=== PATIENT | female | born 1995 | race Caucasian/White ===

== ENCOUNTER 2017-04-19 20:54 | Emergency (ER) | payer MEDICAID ==
--- NOTE | 2017-04-19 21:32 | ED Physician Chart ---
Chief Complaint/HPI - Patient Information Date Seen:: 04/19/17 Time Seen:: 21:27 Chief Complaint:: abd pain History of Present Illness:: pt brought in by mom/dad. she has hx of chrons dz. tonight parents were out bowling and pt c/o sev abd pain. she was seen here 2 wks ago and had similar pain. she was given a rx for some kind of pills from ed that seemed to be helping but fam ran out few days ago. she has seen pmd since last ed visit but was referred to [facility] Dr and hasnt been there yet. pt is on azathioprine 50mg qam for chron's dz no fever. no shashi change in BMS. pt gets reflux most every nt. diarhea is freq event too. is eating today. no known gastritis or gerd hx. note by Dr Sidney garcia 03/31/17 reviewed and gives some details but doesnt say what was rxd. Allergies:: Allergies Allergy/AdvReac Type Severity Reaction Status Date / Time No Known Allergies Allergy Verified 06/04/16 18:56 Vitals:: Vital Signs - 8 hr 04/19/17 21:00 Temp 98.0 F HR 109 RR 19 BP 102/63 O2 Sat % 100 Historian:: Patient, Family Member (m,d) Review of Systems - Review of Systems General/Constitutional: No fever, No chills, No weight loss, No weakness, No diaphoresis, No edema, No loss of appetite Skin: No skin lesions, No rash, No bruising Head: No headache, No light-headedness Eyes: No loss of vision, No pain, No diplopia ENT: No earache, No nasal drainage, No sore throat, No tinnitus Neck: No neck pain, No swelling, No thyromegaly, No stiffness, No mass noted Cardio Vascular: No chest pain, No palpitations, No PND, No orthopnea, No edema Pulmonary: No SOB, No cough, No sputum, No wheezing GI: No nausea, No vomiting, No diarrhea, Pain, No melena, No hematochezia, No constipation, No hematemesis G/U: No dysuria, No frequency, No hematuria Musculoskeletal: No bone or joint pain, No back pain, No muscle pain Endocrine: No polyuria, No polydipsia Psychiatric: No prior psych history, No depression, No anxiety, No suicidal ideation Hematopoietic: No bruising, No lymphadenopathy Allergic/Immuno: No urticaria, No angioedema Neurological: No syncope, No focal symptoms, No weakness, No paresthesia, No headache, No seizure, No dizziness, No confusion, No vertigo Past Medical History - Past Medical History Past Medical History: Other (chronz dz, downs synd) Social History: Lives With Parents Medication: Reviewed (dad doesnt know her meds or what was rxd 2 wks ago) Family Medical History - Family Member Maternal Grandmother History Unknown: Yes Ethnicity: Living Status: Hx Family Diabetes: Yes Mother History Unknown: Yes Ethnicity: Hx Family Cancer: No Hx Family Coronary Artery Disease: No Hx Family Congestive Heart Failure: No Hx Family Diabetes: No Physical Exam - Physical Examination General/Constitutional: Awake, Well-developed, well-nourished, Alert, No distress, Non-toxic appearing, Ambulatory Other Gen/Cons comments:: downs synd appearance. minimal verbal ..poor historian. she indicates all over abd as painful. no pallor. wn/wh. Head: Atraumatic Eyes: Lids, conjuctiva normal, PERRL, EOMI Skin: Nl inspection, No rash, No skin lesions, No ecchymosis, Well hydrated, No lymphadenopathy ENMT: External ears, nose nl, Nasal exam nl, Lips, teeth, gums nl Neck: Nontender, Full ROM w/o pain, No JVD, No nuchal rigidity, No bruit, No mass, No stridor Respiratory: Nl effort/Exclusion, Clear to Auscultation, No Wheeze/Rhonchi/Rales Cardio Vascular: RRR, No murmur, gallop, rubs, NL S1 S2 GI: No organomegaly, No hernia, Normal BS's, Nondistended, No mass/bruits, No McBurney tenderness Other GI comments:: diffuse vague mild tndr. : No CVA tenderness Extremities: No tenderness or effusion, Full ROM, normal strength in all extremities, No edema, Normal digits & nails Neuro/Psych: Alert/oriented, DTR's symmetric, Normal sensory exam, Normal motor strength, Judgement/insight normal, Mood normal, Normal gait, No focal deficits Misc: normal gait, Normal back, No paraspinal tenderness Labs/Radiology/EKG Results - Lab Results Results: Laboratory Tests 04/19/17 04/19/17 04/19/17 21:20 21:20 21:46 WBC 3.1 L D RBC 3.65 L Hgb 10.1 L D Hct 31.3 L D MCV 85.7 MCH 27.6 MCHC Differential 32.2 RDW 18.3 Plt Count 585 H D MPV 6.8 Neutrophils % 69.4 Lymphocytes % 19.6 L Monocytes % 7.3 Eosinophils % 2.9 Basophils % 0.8 Sodium Potassium Chloride Carbon Dioxide Anion Gap BUN Creatinine Est GFR ( Amer) Est GFR (Non-Af Amer) BUN/Creatinine Ratio Glucose Whole Bld Lactic Acid Calcium Total Bilirubin AST ALT Alkaline Phosphatase Total Protein Albumin Globulin Albumin/Globulin Ratio Urine Source CATH Urine Color YELLOW Urine Clarity CLEAR Urine pH 6.0 Ur Specific [place] 1.020 Urine Protein NEGATIVE Urine Glucose (UA) NEGATIVE Urine Ketones TRACE Urine Blood NEGATIVE Urine Nitrate NEGATIVE Urine Bilirubin NEGATIVE Urine Urobilinogen 0.2 Ur Leukocyte Esterase NEGATIVE Urine RBC 0-1 Urine WBC 0-2 Ur Epithelial Cells FEW Urine Bacteria OCCASIONAL Urine Mucus FEW Urine Test NEGATIVE 04/19/17 04/19/17 21:46 21:46 WBC RBC Hgb Hct MCV MCH MCHC Differential RDW Plt Count MPV Neutrophils % Lymphocytes % Monocytes % Eosinophils % Basophils % Sodium 134 L Potassium 3.5 Chloride 103 Carbon Dioxide 25.4 Anion Gap 9.1 BUN 21 Creatinine 0.8 Est GFR ( Amer) > 60.0 Est GFR (Non-Af Amer) > 60.0 BUN/Creatinine Ratio 26.3 Glucose 89 Whole Bld Lactic Acid 0.65 Calcium 8.4 L Total Bilirubin 0.2 L AST 9 L ALT 5 L Alkaline Phosphatase 40 Total Protein 6.9 Albumin 2.9 L Globulin 4.0 Albumin/Globulin Ratio 0.7 L Urine Source Urine Color Urine Clarity Urine pH Ur Specific [place] Urine Protein Urine Glucose (UA) Urine Ketones Urine Blood Urine Nitrate Urine Bilirubin Urine Urobilinogen Ur Leukocyte Esterase Urine RBC Urine WBC Ur Epithelial Cells Urine Bacteria Urine Mucus Urine Test - Radiology Results Results: ct abd/p- ltd exam due to low fat..dilated thick walled descending and sigmoid colon w adjacent haziness suggests poss inflamatory changes. ?diverticulitis, ? colitis (pt has hx of chronz dz..may be this) ED Septic Shock - . Is Septic Shock (SBP<90, OR Lactate>4 mmol\L) present?: No - <6hrs of presentation: Vital Signs: Vital Signs - 8 hr 04/19/17 21:00 Temp 98.0 F HR 109 RR 19 BP 102/63 O2 Sat % 100 Reassessment (Disposition) - Reassessment Reassessment:: no relief w gi cocktail. pt was given toradol shot in past and dc w neurontin but there wer no inflamatory changes on CT back then. Dad seems to prefer to want to take pt home but has no f/u w ge dr till monday. also, not great medical knowledge. Also he variable says she is/isnt feeling better and I am unconvinced which assessment is reliable(if any). Reassessment Condition:: Unchanged
[2017-04-19] MEDS: Sodium Chloride 0.9% 1,000 ML IV ONE (21:51)
[2017-04-19 21:55] LABS: % BASOPHILS 0.8 % (0.0-2.0); % EOSINOPHILS 2.9 % (0.0-5.0); % LYMPHOCYTES 19.6 % (20.0-50.0); % MONOCYTES 7.3 % (2.0-10.0); % NEUTROPHILS 69.4 % (40.0-80.0); MEAN CELL VOLUME 85.7 fl (81-100); MEAN CORPUSCULAR HEMOGLOBIN 27.6 pg (27.0-31.0); MEAN CORPUSCULAR HGB CONC 32.2 pg (28.0-36.0); MEAN PLATELET VOLUME 6.8 fl; NEUTROPHILE ABSOLUTE 2.2 Th/cmm (1.8-8.0); RED BLOOD COUNT 3.65 Mil/cmm (3.80-5.10); RED CELL DISTRIBUTION WIDTH 18.3 % (11.5-20.0)
[2017-04-19 22:00] LABS: HEMATOCRIT 31.3 % (35.0-45.0); HEMOGLOBIN 10.1 gm/dL (11.7-15.5); PLATELET COUNT 585 Th/cmm (150-400); WHITE BLOOD COUNT 3.1 Th/cmm (4.8-10.8)
[2017-04-19 22:10] LABS: ALB/GLOB RATIO 0.7 (1.0-1.8); ALKALINE PHOSPHATASE 40 U/L (34-104); ANION GAP 9.1 (7.0-16.0); BILIRUBIN,TOTAL 0.2 mg/dL (0.3-1.0); BUN - UREA NITROGEN 21 mg/dL (7-25); BUN/CREATININE RATIO 26.3; CALCIUM SERUM 8.4 mg/dL (8.6-10.3); CARBON DIOXIDE 25.4 mEq/L (21.0-31.0); CHLORIDE 103 mEq/L (98-107); CREATININE - SERUM 0.8 mg/dL (0.6-1.2); GLUCOSE 89 mg/dL (70-105); POTASSIUM SERUM 3.5 mEq/L (3.5-5.1); SGOT 9 U/L (13-39); SGPT/ALT 5 U/L (7-52); SODIUM SERUM 134 mEq/L (136-145)
[2017-04-19 22:10] LABS: URINE BILIRUBIN NEGATIVE (NEGATIVE); URINE BLOOD NEGATIVE (NEGATIVE); URINE COLOR YELLOW; URINE GLUCOSE (UA) NEGATIVE (NEGATIVE); URINE KETONE TRACE mg/dL (NEGATIVE); URINE PROTEIN NEGATIVE (NEGATIVE); URINE UROBILINOGEN 0.2 E.U./dL (0.2 - 1.0)
[2017-04-19 22:11] LABS: URINE BACTERIA OCCASIONAL /hpf (NONE SEEN); URINE EPITHELIAL CELLS FEW /lpf (FEW); URINE RBC 0-1 /hpf (0-5); URINE WBC 0-2 /hpf (0-5)
[2017-04-19] MEDS ORDERED: Donnatal Liq 5 ML UDC ONE (22:13)
[2017-04-19] MEDS ORDERED: Maalox 30 mL Cup ONE (22:13)
[2017-04-19] MEDS: Maalox 30 mL Cup PO ONE (22:18)
[2017-04-19] MEDS: Donnatal Liq 5 ML UDC PO ONE (22:18)
[2017-04-20] MEDS ORDERED: Piperacillin Sodium/Tazobact 3.375 gm Vial IV ONE (00:05)
[2017-04-20] MEDS: Mesalamine 250 mg ER Cap PO ONE (00:50)
--- NOTE | 2017-04-20 10:29 | Diagnostic Imaging Report ---
CT scan abdomen and pelvis without intravenous contrast HISTORY: Pain Total DLP equals 163 CTDI equals 3.9 Axial sections were obtained from the xiphoid process down to the pubic symphysis. Exam in detail is somewhat limited due to patient motion artifact. In addition, the exam is compromised due to the absence of oral/bowel contrast in a very limited amount of intra-abdominal fat. There is poor delineation of bowel wall margins. No focal lesions seen within the liver. The spleen appears normal. No definite focal abnormality seen in the region of the pancreas. No focal renal lesions or hydronephrosis. Despite the above limitations, there appears to be dilatation and segmental thickening along the lower descending/sigmoid colon. Inflammatory change cannot be excluded. Changes associated with diverticulitis or colitis cannot be ruled out. Clinical correlation is needed. No free intraperitoneal air. No other abnormal masses or fluid collections seen within the pelvis. IMPRESSION: 1. Limited exam due to the absence of oral/bowel contrast and 8 limited amount of intra-abdominal fat. Very poor delineation of bowel wall margins. 2. Apparent dilatation along with wall thickening along a segment of the lower descending and sigmoid colon with adjacent haziness. Findings are suggestive of inflammatory change. Changes related to diverticulitis or colitis cannot be excluded. Clinical correlation is needed.
== END 2017-04-20 00:50 | disposition left against medical advice (07) ==
LOC: ER 20:54
DX: R10.84 Generalized abdominal pain (principal)
CPT/HCPCS: 99285; 96361; 74176; 36415; 83605; 85025; 81001; 81025; 80053; 87040 ×2; 96365; 96375; J2405; J1885; J2543; J7030